=== PATIENT | female | born 1940 ===

== ENCOUNTER → 2019-10-02 10:24 | Outpatient (CLI) | payer MEDICARE, SELFPAY | PROVIDERS: Visit Provider Specialist | DX: N39.0 Urinary tract infection, site not specified (principal); R39.9 Unspecified symptoms and signs involving the genitourinary system; N81.11 Cystocele, midline; N95.2 Postmenopausal atrophic vaginitis; Z87.440 Personal history of urinary (tract) infections | CPT/HCPCS: 51798; 81002; 87086; 99213 ==

== ENCOUNTER → 2020-09-17 10:05 | Outpatient (CLI) | payer MEDICARE, SELFPAY | PROVIDERS: Visit Provider Specialist | DX: R30.0 Dysuria (principal); N95.2 Postmenopausal atrophic vaginitis; N81.11 Cystocele, midline; Z87.440 Personal history of urinary (tract) infections | CPT/HCPCS: 81002; 87086; 99213 ==

== ENCOUNTER → 2021-03-13 14:59 | Outpatient (CLI) | payer MEDICARE, SELFPAY | PROVIDERS: Visit Provider Specialist | DX: R30.0 Dysuria (principal); N81.11 Cystocele, midline; N95.2 Postmenopausal atrophic vaginitis; R39.9 Unspecified symptoms and signs involving the genitourinary system; Z87.440 Personal history of urinary (tract) infections | CPT/HCPCS: 51798; 81002; 87077; 87086; 99214 ==